=== PATIENT | male | born 1985 | race Caucasian/White ===

== ENCOUNTER 2019-11-22 14:46 | Emergency (ER) | payer MEDICAID ==
[~2019-11-22] VITALS: Ht 172.7 cm; Wt 149.6 kg
[2019-11-22] MEDS ORDERED: KETOROLAC 30MG/ML VIAL IV STA (15:45)
[2019-11-22] MEDS ORDERED: HYDROCODONE/ACETAMINOPHEN 5/325MG TABLET PO STA (15:45)
[2019-11-22] MEDS ORDERED: CLINDAMYCIN 900 MG in DEXTROSE 5% WATER 50 ML IV ONE (15:45)
[2019-11-22] MEDS ORDERED: CLINDAMYCIN 900 MG PREMIX 50 ML IV SCH (16:15)
[2019-11-22 16:19] LABS: EOSINOPHILS % 3.1 % (0.0-5.0); HEMATOCRIT. 37.7 % (42.0-52.0); HEMOGLOBIN. 13.2 g/dL (14.0-18.0); LYMPHOCYTES % 35.4 % (20.0-50.0); MEAN CORPUSCULAR HEMOGLOBIN 31.3 pg (28.0-32.0); MEAN CORPUSCULAR VOLUME 89.4 fL (80.0-94.0); MONOCYTES % 6.3 % (2.0-8.0); NEUTROPHILS % 54.2 % (40.0-76.0); PLATELET 270 x1000/uL (130-400); RED BLOOD CELL COUNT 4.22 mill/uL (4.7-6.1); RED CELL DISTRIBUTION WIDTH 13.6 % (11.6-14.6)
[2019-11-22 16:25] LABS: CHLORIDE 107 mEq/L (98-107)
[2019-11-22 18:15] VITALS: BP 110/81
== END 2019-11-22 18:17 | disposition home or self-care (01) ==
LOC: ER 14:54
DX: L03.115 Cellulitis of right lower limb (principal); F12.10 Cannabis abuse, uncomplicated; Z98.890 Other specified postprocedural states
CPT/HCPCS: 36415; 80053; 85025; 96365; 96375; 99284; J1885; J3490; J7060